=== PATIENT | male | born 1975 | race Caucasian/White ===

== ENCOUNTER 2022-01-15 17:36 | Emergency (ER) | payer OTHER, MEDICAID, SELFPAY ==
[2022-01-15] VITALS (75 sets, daily range): BP systolic 73–110; BP diastolic 40–59; PULSE 98–125; RESP 0–69; TEMP 35.8–36.6; O2SAT 56–100; BMI 27.1
--- NOTE | 2022-01-15 18:09 | PC.NURSE ---
Pt brought in via EMS for worsening liver failure. Pt's abd is very distended which he states is putting pressure on his lungs when he breaths. Also c/o vomiting with copious amounts of bright red blood at home. Weakness which is inhibiting him from making it to the bathroom. Pt appears very jaundice, blood noted around nostrils and mouth. BPs are on the low range of normal and HR [id number].
--- NOTE | 2022-01-15 18:18 | ED_ITS ---
HPI - GI Bleed <Walter Lockwood DO - Last Filed: 01/15/22 22:45> General Chief complaint: Abdominal Pain Stated complaint: Liver Failure Time Seen by Provider: 01/15/22 18:01 History of Present Illness HPI Narrative: 46-year-old male occasional smoker has a heavy history of alcohol abuse, stating he drinks upwards of 2 bottles of wine per day presents by EMS for evaluation of a large amount of bright red vomit. He states that about 2 days ago he started having increasing generalized abdominal pain and swelling along with nausea and chills. Today he had 2 bouts of emesis, both of which were about 16 oz of bright red blood. He states that he started developing yellowing of his skin and eyes and feels a bit itchy. He has generalized weakness and fatigue along with exertional shortness of breath. Though he has an extensive alcohol history he denies any history of ascites or known esophageal varices, stating he is never had an EGD. He does admit to multiple episodes of very dark sticky stools. Related Data Allergies Allergy/AdvReac Type Severity Reaction Status Date / Time No Known Drug Allergies Allergy Verified 01/15/22 17:43 <Tania Eubanks MD - Last Filed: 01/16/22 05:12> General Source: EMS Mode of arrival: EMS Review of Systems <Walter Lockwood DO - Last Filed: 01/15/22 22:45> Review of Systems Narrative: GENERAL: See HPI HEENT: See HPI RESPIRATORY: See HPI CARDIOVASCULAR: Denies chest pain, palpitations, orthopnea, edema, GASTROINTESTINAL: See HPI : Denies dysuria, frequency, incontinence, hematuria, urinary retention. MUSCULOSKELETAL: denies weakness, joint pain, or bony pain SKIN: Denies rash, skin lesions, or other NEUROLOGIC: Denies weakness, headache, numbness, change in speech, confusion, seizures, incoordination. PSYCHIATRIC: No concerning psychosocial issues. 12 point review of systems is negative except for those stated above <Tania Eubanks MD - Last Filed: 01/16/22 05:12> tobacco type: smokeless tobacco alcohol intake frequency: 3 or more drinks per day Alcohol type: wine Substance Use Type: marijuana Exam <Walter Lockwood DO - Last Filed: 01/15/22 22:45> Narrative Exam Narrative: GENERAL: [46] year old patient appears stated age. Obviously significantly ill, awake, alert and oriented HEAD: Atraumatic. Normocephalic. EYES: Pupils equal round and reactive. Extraocular motions intact. Scleral icterus. No injection or drainage. ENT: Nose without bleeding, purulent drainage. Throat without erythema, tonsillar hypertrophy or exudate. Airway patent. NECK: Trachea midline. Non tender CARDIOVASCULAR: Regular but tachycardic rhythm without murmurs, gallops, or rubs. RESPIRATORY: Clear to auscultation. Breath sounds equal bilaterally. No wheezes, rales, or rhonchi. GASTROINTESTINAL: Distended and firm with mild caput medusa and fluid wave consistent with ascites, no erythema or warmth EXTREMITIES: No edema or joint tenderness. BACK: Nontender without deformity or crepitance. No flank tenderness. NEURO: AOx3. SKIN: Jaundice, No rash or erythema of visible areas Initial Vital Signs Initial Vital Signs: Vital Signs Pulse Rate 104 H 01/15/22 17:54 Respiratory Rate 30 H 01/15/22 17:54 Blood Pressure 96/55 L 01/15/22 17:54 Pulse Oximetry 93 01/15/22 17:54 <Tania Eubanks MD - Last Filed: 01/16/22 05:12> Initial Vital Signs Initial Vital Signs: Vital Signs Pulse Rate 104 H 01/15/22 17:54 Respiratory Rate 30 H 01/15/22 17:54 Blood Pressure 96/55 L 01/15/22 17:54 Pulse Oximetry 93 01/15/22 17:54 Procedures <Walter Lockwood DO - Last Filed: 01/15/22 22:45> Central Line Placement Right IJ: Time Out Performed: Yes Patient Placed on Monitor/Pulse Ox: Yes Prep: mask, gown and gloves Central Line Prep: Chlorhexidine scrub and sterile drapes applied Local Anesthetic: lidocaine 2% Amount of anesthesia used (mL): 3 Ultrasound Used for Placement: Yes Central Line Lumen Inserted: triple Post Procedure: sutured in place (statlock), good blood return, all ports aspirated, flushed, capped and sterile dressing applied Post Procedure X-Ray: tip of catheter in good position and no pneumothorax seen Patient Tolerated Procedure: Well Complications: none Intubation Time out performed: Yes sedative: Ketamine Mg Given: 90 paralytic: Rocuronium Mg Given: 54 Laryngoscope: other (glydescope) Assist Device Used: Bougie ET Tube Size: 8 ET Tube Uncuffed: No Tube Secured Depth (cm): 25 Tube Secured Location: teeth Tube Placement Confirmation: Visualized tube passing through cords, Equal breath sounds bilaterally, No breath sounds over epigastrium, Confirmation by capnometry and Chest Xray Patient Tolerated Procedure: Well Intubation Complications: none Course <Walter Lockwood DO - Last Filed: 01/15/22 22:45> Course Course Narrative: MELD Score (Model For End-Stage Liver Disease) (12 and older) from [facility] on 01/15/2022 All calculations should be rechecked by clinician prior to use RESULT SUMMARY: 22 points MELD Score (2016)* 19.6% Estimated 3-Month Mortality INPUTS: Dialysis at least twice in the past week ?> 0 = No Creatinine ?> 1.22 mg/dL Bilirubin ?> 6.0 mg/dL INR ?> 1.9 Sodium ?> 138 mEq/L Orders Ordered: ED Orders 01/15/22 21:25 HH [Hemoglobin and Hematocrit] Stat 01/15/22 22:02 Chest [XR chest 1V] Stat 01/15/22 22:18 Chest [XR chest 1V] Stat 01/15/22 23:00 ABG [Arterial Blood Gas] Stat Discontinued Medications Octreotide Acetate 500 mcg/ (Sodium Chloride) 101 mls @ 10.1 mls/hr IV CONT WILLIAMS; Protocol Last Infusion: 01/15/22 23:42 Dose: 50 mcg/hr, 10.1 mls/hr Documented By: Admin: 01/15/22 18:34 Dose: 50 mcg/hr, 10.1 mls/hr Documented By: AMU Ceftriaxone Sodium 2,000 mg/ (Sodium Chloride) 100 mls @ 200 mls/hr IV NOW ONE Stop: 01/15/22 18:32 Last Infusion: 01/15/22 19:18 Dose: 0 mls/hr Documented By: Admin: 01/15/22 18:41 Dose: 200 mls/hr Documented By: AMU Tranexamic Acid 1,000 mg/ (Sodium Chloride) 100 mls @ 200 mls/hr IV NOW ONE Stop: 01/15/22 19:31 Last Infusion: 01/15/22 20:06 Dose: 0 mls/hr Documented By: Admin: 01/15/22 19:18 Dose: 200 mls/hr Documented By: GAIL NOREPINEPHRINE BITARTRATE/D5W (Levophed) 4 mg in 250 mls @ 30 mls/hr IV TITRATE WILLIAMS; Protocol Last Titration: 01/15/22 23:42 Dose: 10 mcg/min, 37.5 mls/hr Documented By: Titration: 01/15/22 22:47 Dose: 10 mcg/min, 37.5 mls/hr Documented By: DKBharat Admin: 01/15/22 22:16 Dose: 8 mcg/min, 30 mls/hr Documented By: LU Sodium Chloride (Normal Saline 0.9%) 500 mls @ 1,000 mls/hr IV BOLUS ONE Stop: 01/15/22 23:47 Last Infusion: 01/15/22 23:20 Dose: 0 mls/hr Documented By: DKBharat Admin: 01/15/22 21:45 Dose: 1,000 mls/hr Documented By: YUNI Ketamine HCl (Ketamine 500 Mg/5 Ml Inj) 90 mg 1 mg/kg (90 mg) IV NOW ONE Stop: 01/15/22 21:55 Last Admin: 01/15/22 22:10 Dose: 90 mg Documented By: LU Lorazepam (Lorazepam 2 Mg/Ml Inj) 0.5 mg IV NOW ONE Stop: 01/15/22 19:22 Last Admin: 01/15/22 19:32 Dose: 0.5 mg Documented By: GAIL Lorazepam (Lorazepam 2 Mg/Ml Inj) 0.5 mg IV NOW ONE Stop: 01/15/22 20:53 Last Admin: 01/15/22 20:52 Dose: 0.5 mg Documented By: AMCarey Octreotide Acetate (Octreotide 100 Mcg/Ml Vial) 50 mcg IV NOW ONE Stop: 01/15/22 18:25 Last Admin: 01/15/22 18:30 Dose: 50 mcg Documented By: ESTEBANU Pantoprazole Sodium (Pantoprazole 40 Mg Vial) 80 mg IV NOW ONE Stop: 01/15/22 18:05 Last Admin: 01/15/22 18:26 Dose: 80 mg Documented By: GAIL Rocuronium [place] (Rocuronium 100 Mg/10 Ml Vial) 54 mg 0.6 mg/kg (54 mg) IV NOW ONE Stop: 01/15/22 21:55 Last Admin: 01/15/22 22:12 Dose: 54 mg Documented By: BS Consultations Consultation #1: call to GI/ICU at [facility] and they do not have the ability to do emergent banding if needed, recommend 1 of the larger hospitals in [place] calls to , LANETTE, Madi call back from [facility] ICU ([place]) who is happy to accept call to [facility], they will do a weather check and likely be here in - Vital Signs Vital signs: Vital Signs - 8 hr 01/15/22 21:32 01/15/22 21:45 01/15/22 22:45 Temperature 96.6 F L 97.6 F 97.8 F Pulse Rate 105 H 101 H 101 H Respiratory Rate 35 H 36 H 17 Blood Pressure 91/51 L 106/57 L 91/54 L Pulse Oximetry 01/15/22 21:15 01/15/22 21:20 01/15/22 21:25 Temperature Pulse Rate 113 H 109 H 106 H Respiratory Rate 47 H 36 H 39 H Blood Pressure Pulse Oximetry 94 67 L 96 01/15/22 21:30 01/15/22 21:30 01/15/22 21:35 Temperature Pulse Rate 106 H 103 H Respiratory Rate 42 H 28 H Blood Pressure 91/50 L Pulse Oximetry 72 L 77 L 01/15/22 21:40 01/15/22 21:40 01/15/22 21:45 Temperature Pulse Rate 102 H Respiratory Rate 41 H Blood Pressure 93/55 L 110/57 L Pulse Oximetry 98 01/15/22 21:45 01/15/22 21:50 01/15/22 21:50 Temperature Pulse Rate 101 H 101 H Respiratory Rate 34 H 32 H Blood Pressure 105/56 L Pulse Oximetry 90 L 56 L 01/15/22 21:55 01/15/22 21:55 01/15/22 22:00 Temperature Pulse Rate 100 H Respiratory Rate 35 H Blood Pressure 106/57 L 109/59 L Pulse Oximetry 94 01/15/22 22:00 01/15/22 22:05 01/15/22 22:06 Temperature Pulse Rate 101 H 102 H 103 H Respiratory Rate 35 H 38 H 53 H Blood Pressure Pulse Oximetry 99 100 99 01/15/22 22:06 01/15/22 22:10 01/15/22 22:10 Temperature Pulse Rate 104 H Respiratory Rate 69 H Blood Pressure 92/53 L 97/54 L Pulse Oximetry 99 01/15/22 22:15 01/15/22 22:15 01/15/22 22:18 Temperature Pulse Rate 98 H 107 H Respiratory Rate 22 18 Blood Pressure 73/40 L Pulse Oximetry 81 L 96 01/15/22 22:18 01/15/22 22:20 01/15/22 22:20 Temperature Pulse Rate 106 H Respiratory Rate 18 Blood Pressure 83/44 L 92/51 L Pulse Oximetry 94 01/15/22 22:25 01/15/22 22:25 01/15/22 22:30 Temperature Pulse Rate 107 H Respiratory Rate 15 Blood Pressure 93/54 L 99/56 L Pulse Oximetry 92 01/15/22 22:30 01/15/22 22:57 01/15/22 23:01 Temperature 97.3 F L 96.8 F L Pulse Rate 105 H 100 H 100 H Respiratory Rate 17 18 18 Blood Pressure 99/55 L 102/51 L Pulse Oximetry 94 01/15/22 23:27 01/15/22 22:35 01/15/22 22:35 Temperature 96.5 F L Pulse Rate 100 H 104 H Respiratory Rate 24 12 Blood Pressure 94/54 L 97/53 L Pulse Oximetry 95 01/15/22 22:40 01/15/22 22:40 01/15/22 22:45 Temperature Pulse Rate 103 H Respiratory Rate 18 Blood Pressure 95/51 L 91/54 L Pulse Oximetry 96 01/15/22 22:45 01/15/22 22:50 01/15/22 22:50 Temperature Pulse Rate 101 H 100 H Respiratory Rate 18 18 Blood Pressure 98/54 L Pulse Oximetry 97 97 01/15/22 22:55 01/15/22 22:55 01/15/22 23:00 Temperature Pulse Rate 100 H Respiratory Rate 12 Blood Pressure 99/55 L 102/51 L Pulse Oximetry 97 01/15/22 23:00 01/15/22 23:05 01/15/22 23:05 Temperature Pulse Rate 100 H 99 H Respiratory Rate 18 18 Blood Pressure 101/54 L Pulse Oximetry 97 97 01/15/22 23:10 01/15/22 23:10 Temperature Pulse Rate 100 H Respiratory Rate 24 Blood Pressure 104/55 L Pulse Oximetry 97 <Tania Eubanks MD - Last Filed: 01/16/22 05:12> Orders Ordered: ED Orders 01/15/22 21:25 HH [Hemoglobin and Hematocrit] Stat 01/15/22 22:02 Chest [XR chest 1V] Stat 01/15/22 22:18 Chest [XR chest 1V] Stat 01/15/22 23:00 ABG [Arterial Blood Gas] Stat Discontinued Medications Octreotide Acetate 500 mcg/ (Sodium Chloride) 101 mls @ 10.1 mls/hr IV CONT WILLIAMS; Protocol Last Infusion: 01/15/22 23:42 Dose: 50 mcg/hr, 10.1 mls/hr Documented By: DKBharat Admin: 01/15/22 18:34 Dose: 50 mcg/hr, 10.1 mls/hr Documented By: AMU Ceftriaxone Sodium 2,000 mg/ (Sodium Chloride) 100 mls @ 200 mls/hr IV NOW ONE Stop: 01/15/22 18:32 Last Infusion: 01/15/22 19:18 Dose: 0 mls/hr Documented By: Admin: 01/15/22 18:41 Dose: 200 mls/hr Documented By: AMU Tranexamic Acid 1,000 mg/ (Sodium Chloride) 100 mls @ 200 mls/hr IV NOW ONE Stop: 01/15/22 19:31 Last Infusion: 01/15/22 20:06 Dose: 0 mls/hr Documented By: Admin: 01/15/22 19:18 Dose: 200 mls/hr Documented By: AMU NOREPINEPHRINE BITARTRATE/D5W (Levophed) 4 mg in 250 mls @ 30 mls/hr IV TITRATE WILLIAMS; Protocol Last Titration: 01/15/22 23:42 Dose: 10 mcg/min, 37.5 mls/hr Documented By: Titration: 01/15/22 22:47 Dose: 10 mcg/min, 37.5 mls/hr Documented By: Admin: 01/15/22 22:16 Dose: 8 mcg/min, 30 mls/hr Documented By: LU Sodium Chloride (Normal Saline 0.9%) 500 mls @ 1,000 mls/hr IV BOLUS ONE Stop: 01/15/22 23:47 Last Infusion: 01/15/22 23:20 Dose: 0 mls/hr Documented By: Admin: 01/15/22 21:45 Dose: 1,000 mls/hr Documented By: YUNI Ketamine HCl (Ketamine 500 Mg/5 Ml Inj) 90 mg 1 mg/kg (90 mg) IV NOW ONE Stop: 01/15/22 21:55 Last Admin: 01/15/22 22:10 Dose: 90 mg Documented By: LU Lorazepam (Lorazepam 2 Mg/Ml Inj) 0.5 mg IV NOW ONE Stop: 01/15/22 19:22 Last Admin: 01/15/22 19:32 Dose: 0.5 mg Documented By: GAIL Lorazepam (Lorazepam 2 Mg/Ml Inj) 0.5 mg IV NOW ONE Stop: 01/15/22 20:53 Last Admin: 01/15/22 20:52 Dose: 0.5 mg Documented By: GAIL Octreotide Acetate (Octreotide 100 Mcg/Ml Vial) 50 mcg IV NOW ONE Stop: 01/15/22 18:25 Last Admin: 01/15/22 18:30 Dose: 50 mcg Documented By: GAIL Pantoprazole Sodium (Pantoprazole 40 Mg Vial) 80 mg IV NOW ONE Stop: 01/15/22 18:05 Last Admin: 01/15/22 18:26 Dose: 80 mg Documented By: GAIL Rocuronium [place] (Rocuronium 100 Mg/10 Ml Vial) 54 mg 0.6 mg/kg (54 mg) IV NOW ONE Stop: 01/15/22 21:55 Last Admin: 01/15/22 22:12 Dose: 54 mg Documented By: LU Vital Signs Vital signs: Vital Signs - 8 hr 01/15/22 21:32 01/15/22 21:45 01/15/22 22:45 Temperature 96.6 F L 97.6 F 97.8 F Pulse Rate 105 H 101 H 101 H Respiratory Rate 35 H 36 H 17 Blood Pressure 91/51 L 106/57 L 91/54 L Pulse Oximetry 01/15/22 21:15 01/15/22 21:20 01/15/22 21:25 Temperature Pulse Rate 113 H 109 H 106 H Respiratory Rate 47 H 36 H 39 H Blood Pressure Pulse Oximetry 94 67 L 96 01/15/22 21:30 01/15/22 21:30 01/15/22 21:35 Temperature Pulse Rate 106 H 103 H Respiratory Rate 42 H 28 H Blood Pressure 91/50 L Pulse Oximetry 72 L 77 L 01/15/22 21:40 01/15/22 21:40 01/15/22 21:45 Temperature Pulse Rate 102 H Respiratory Rate 41 H Blood Pressure 93/55 L 110/57 L Pulse Oximetry 98 01/15/22 21:45 01/15/22 21:50 01/15/22 21:50 Temperature Pulse Rate 101 H 101 H Respiratory Rate 34 H 32 H Blood Pressure 105/56 L Pulse Oximetry 90 L 56 L 01/15/22 21:55 01/15/22 21:55 01/15/22 22:00 Temperature Pulse Rate 100 H Respiratory Rate 35 H Blood Pressure 106/57 L 109/59 L Pulse Oximetry 94 01/15/22 22:00 01/15/22 22:05 01/15/22 22:06 Temperature Pulse Rate 101 H 102 H 103 H Respiratory Rate 35 H 38 H 53 H Blood Pressure Pulse Oximetry 99 100 99 01/15/22 22:06 01/15/22 22:10 01/15/22 22:10 Temperature Pulse Rate 104 H Respiratory Rate 69 H Blood Pressure 92/53 L 97/54 L Pulse Oximetry 99 01/15/22 22:15 01/15/22 22:15 01/15/22 22:18 Temperature Pulse Rate 98 H 107 H Respiratory Rate 22 18 Blood Pressure 73/40 L Pulse Oximetry 81 L 96 01/15/22 22:18 01/15/22 22:20 01/15/22 22:20 Temperature Pulse Rate 106 H Respiratory Rate 18 Blood Pressure 83/44 L 92/51 L Pulse Oximetry 94 01/15/22 22:25 01/15/22 22:25 01/15/22 22:30 Temperature Pulse Rate 107 H Respiratory Rate 15 Blood Pressure 93/54 L 99/56 L Pulse Oximetry 92 01/15/22 22:30 01/15/22 22:57 01/15/22 23:01 Temperature 97.3 F L 96.8 F L Pulse Rate 105 H 100 H 100 H Respiratory Rate 17 18 18 Blood Pressure 99/55 L 102/51 L Pulse Oximetry 94 01/15/22 23:27 01/15/22 22:35 01/15/22 22:35 Temperature 96.5 F L Pulse Rate 100 H 104 H Respiratory Rate 24 12 Blood Pressure 94/54 L 97/53 L Pulse Oximetry 95 01/15/22 22:40 01/15/22 22:40 01/15/22 22:45 Temperature Pulse Rate 103 H Respiratory Rate 18 Blood Pressure 95/51 L 91/54 L Pulse Oximetry 96 01/15/22 22:45 01/15/22 22:50 01/15/22 22:50 Temperature Pulse Rate 101 H 100 H Respiratory Rate 18 18 Blood Pressure 98/54 L Pulse Oximetry 97 97 01/15/22 22:55 01/15/22 22:55 01/15/22 23:00 Temperature Pulse Rate 100 H Respiratory Rate 12 Blood Pressure 99/55 L 102/51 L Pulse Oximetry 97 01/15/22 23:00 01/15/22 23:05 01/15/22 23:05 Temperature Pulse Rate 100 H 99 H Respiratory Rate 18 18 Blood Pressure 101/54 L Pulse Oximetry 97 97 01/15/22 23:10 01/15/22 23:10 Temperature Pulse Rate 100 H Respiratory Rate 24 Blood Pressure 104/55 L Pulse Oximetry 97 MDM - GI Bleed <Walter Lockwood, DO - Last Filed: 01/15/22 22:45> Lab Data Result diagrams: 01/15/22 21:25 01/15/22 17:46 Labs: Lab Results 01/15/22 01/15/22 01/15/22 Range/Units 17:46 17:46 17:46 WBC (4.5-11.0) X10^3/uL RBC (4.5-5.9) X10^6/uL Hgb (13.5-17.5) g/dL Hct (41-53) % MCV (80-100) fL MCH (26-34) PG MCHC (30-36) % RDW (11.6-14.8) % Plt Count (150-400) X10^3/uL Neut % (Auto) Lymph % (Auto) [place] % (Auto) Eos % (Auto) Baso % (Auto) Lymph # (Auto) [place] # (Auto) Baso # (Auto) Total Counted Seg Neutrophils % (38-70) % Band Neutrophils % (3-7) % Lymphocytes % (Manual) (25-45) % Monocytes % (Manual) (2-11) % Eosinophils % (Manual) (2-4) % Neutrophils # (Manual) (8534-0214) /uL RBC Morphology Dimorphic RBCs Polychromasia Hypochromasia Poikilocytosis Anisocytosis Microcytosis [place] Cells PT 21.7 H (10.1-12.7) SECONDS INR 1.9 H (0.9-1.3) Fibrinogen (211-428) mg/dL ABG pH (7.35-7.45) ABG pCO2 (35-45) mmHg ABG pO2 (80-100) mmHg ABG HCO3 (22-26) mmol/L ABG Total CO2 (21-31) mmol/L ABG O2 Saturation (95-100) % ABG Base Excess (-2-2) mmol/L FiO2 Sodium 138 (137-145) mmol/L Potassium 3.4 (3.4-5.1) mmol/L Chloride 103 (98-107) mmol/L Carbon Dioxide 15 L (22-32) mmol/L BUN 9 (9-20) mg/dL Creatinine 1.22 (0.66-1.25) mg/dL Estimated GFR > 60 (>60) mL/min BUN/Creatinine Ratio 7.4 (6-22) Glucose 151 H (70-100) mg/dL Lactate 8.3 H* (0.7-2.1) mmol/L Calcium 7.7 L (8.4-10.2) mg/dL Total Bilirubin 6.0 H (0.2-1.3) mg/dL AST 113 H (17-59) IU/L ALT 24 (<50) IU/L Alkaline Phosphatase 340 H (38-126) U/L Ammonia (9-30) umol/L Total Protein 6.7 (6.3-8.2) g/dL Albumin 2.8 L (3.5-5.0) g/dL Globulin 3.9 (1.7-4.1) g/dL Albumin/Globulin Ratio 0.7 L (1.0-2.8) Lipase 43 (23-300) U/L SARS-CoV-2 (PCR) (Negative) Blood Type Antibody Screen Crossmatch 01/15/22 01/15/22 01/15/22 Range/Units 17:46 17:46 17:46 WBC (4.5-11.0) X10^3/uL RBC (4.5-5.9) X10^6/uL Hgb (13.5-17.5) g/dL Hct (41-53) % MCV (80-100) fL MCH (26-34) PG MCHC (30-36) % RDW (11.6-14.8) % Plt Count (150-400) X10^3/uL Neut % (Auto) Lymph % (Auto) [place] % (Auto) Eos % (Auto) Baso % (Auto) Lymph # (Auto) [place] # (Auto) Baso # (Auto) Total Counted Seg Neutrophils % (38-70) % Band Neutrophils % (3-7) % Lymphocytes % (Manual) (25-45) % Monocytes % (Manual) (2-11) % Eosinophils % (Manual) (2-4) % Neutrophils # (Manual) (7590-2288) /uL RBC Morphology Dimorphic RBCs Polychromasia Hypochromasia Poikilocytosis Anisocytosis Microcytosis [place] Cells PT (10.1-12.7) SECONDS INR (0.9-1.3) Fibrinogen 241 (211-428) mg/dL ABG pH (7.35-7.45) ABG pCO2 (35-45) mmHg ABG pO2 (80-100) mmHg ABG HCO3 (22-26) mmol/L ABG Total CO2 (21-31) mmol/L ABG O2 Saturation (95-100) % ABG Base Excess (-2-2) mmol/L FiO2 Sodium (137-145) mmol/L Potassium (3.4-5.1) mmol/L Chloride (98-107) mmol/L Carbon Dioxide (22-32) mmol/L BUN (9-20) mg/dL Creatinine (0.66-1.25) mg/dL Estimated GFR (>60) mL/min BUN/Creatinine Ratio (6-22) Glucose (70-100) mg/dL Lactate (0.7-2.1) mmol/L Calcium (8.4-10.2) mg/dL Total Bilirubin (0.2-1.3) mg/dL AST (17-59) IU/L ALT (<50) IU/L Alkaline Phosphatase (38-126) U/L Ammonia 13 (9-30) umol/L Total Protein (6.3-8.2) g/dL Albumin (3.5-5.0) g/dL Globulin (1.7-4.1) g/dL Albumin/Globulin Ratio (1.0-2.8) Lipase (23-300) U/L SARS-CoV-2 (PCR) Negative (Negative) Blood Type Antibody Screen Crossmatch 01/15/22 01/15/22 01/15/22 Range/Units 18:00 18:00 21:25 WBC 26.7 H (4.5-11.0) X10^3/uL RBC 2.70 L (4.5-5.9) X10^6/uL Hgb 6.5 L* 5.0 L* (13.5-17.5) g/dL Hct 21.9 L 17.7 L* (41-53) % MCV 81.3 (80-100) fL MCH 24.2 L (26-34) PG MCHC 29.8 L (30-36) % RDW 29.7 H (11.6-14.8) % Plt Count 333 (150-400) X10^3/uL Neut % (Auto) Not Reportable Lymph % (Auto) Not Reportable [place] % (Auto) Not Reportable Eos % (Auto) Not Reportable Baso % (Auto) Not Reportable Lymph # (Auto) Not Reportable [place] # (Auto) Not Reportable Baso # (Auto) Not Reportable Total Counted 100 Seg Neutrophils % 76.0 H (38-70) % Band Neutrophils % 9.0 H (3-7) % Lymphocytes % (Manual) 8.0 L (25-45) % Monocytes % (Manual) 6.0 (2-11) % Eosinophils % (Manual) 1.0 L (2-4) % Neutrophils # (Manual) 99530 H (2984-3725) /uL RBC Morphology See below Dimorphic RBCs Present Polychromasia 1+ H Hypochromasia 1+ H Poikilocytosis 2+ H Anisocytosis 3+ H Microcytosis 1+ H [place] Cells 1+ H PT (10.1-12.7) SECONDS INR (0.9-1.3) Fibrinogen (211-428) mg/dL ABG pH (7.35-7.45) ABG pCO2 (35-45) mmHg ABG pO2 (80-100) mmHg ABG HCO3 (22-26) mmol/L ABG Total CO2 (21-31) mmol/L ABG O2 Saturation (95-100) % ABG Base Excess (-2-2) mmol/L FiO2 Sodium (137-145) mmol/L Potassium (3.4-5.1) mmol/L Chloride (98-107) mmol/L Carbon Dioxide (22-32) mmol/L BUN (9-20) mg/dL Creatinine (0.66-1.25) mg/dL Estimated GFR (>60) mL/min BUN/Creatinine Ratio (6-22) Glucose (70-100) mg/dL Lactate (0.7-2.1) mmol/L Calcium (8.4-10.2) mg/dL Total Bilirubin (0.2-1.3) mg/dL AST (17-59) IU/L ALT (<50) IU/L Alkaline Phosphatase (38-126) U/L Ammonia (9-30) umol/L Total Protein (6.3-8.2) g/dL Albumin (3.5-5.0) g/dL Globulin (1.7-4.1) g/dL Albumin/Globulin Ratio (1.0-2.8) Lipase (23-300) U/L SARS-CoV-2 (PCR) (Negative) Blood Type B Negative Antibody Screen Negative Crossmatch See Detail 01/15/22 01/15/22 Range/Units 21:29 23:00 WBC (4.5-11.0) X10^3/uL RBC (4.5-5.9) X10^6/uL Hgb (13.5-17.5) g/dL Hct (41-53) % MCV (80-100) fL MCH (26-34) PG MCHC (30-36) % RDW (11.6-14.8) % Plt Count (150-400) X10^3/uL Neut % (Auto) Lymph % (Auto) [place] % (Auto) Eos % (Auto) Baso % (Auto) Lymph # (Auto) [place] # (Auto) Baso # (Auto) Total Counted Seg Neutrophils % (38-70) % Band Neutrophils % (3-7) % Lymphocytes % (Manual) (25-45) % Monocytes % (Manual) (2-11) % Eosinophils % (Manual) (2-4) % Neutrophils # (Manual) (2340-2255) /uL RBC Morphology Dimorphic RBCs Polychromasia Hypochromasia Poikilocytosis Anisocytosis Microcytosis [place] Cells PT (10.1-12.7) SECONDS INR (0.9-1.3) Fibrinogen (211-428) mg/dL ABG pH 6.94 L* (7.35-7.45) ABG pCO2 46.1 H (35-45) mmHg ABG pO2 104 H (80-100) mmHg ABG HCO3 10 L (22-26) mmol/L ABG Total CO2 11 L (21-31) mmol/L ABG O2 Saturation 92 L (95-100) % ABG Base Excess -23.0 L (-2-2) mmol/L FiO2 100 Sodium (137-145) mmol/L Potassium (3.4-5.1) mmol/L Chloride (98-107) mmol/L Carbon Dioxide (22-32) mmol/L BUN (9-20) mg/dL Creatinine (0.66-1.25) mg/dL Estimated GFR (>60) mL/min BUN/Creatinine Ratio (6-22) Glucose (70-100) mg/dL Lactate 16.5 H* (0.7-2.1) mmol/L Calcium (8.4-10.2) mg/dL Total Bilirubin (0.2-1.3) mg/dL AST (17-59) IU/L ALT (<50) IU/L Alkaline Phosphatase (38-126) U/L Ammonia (9-30) umol/L Total Protein (6.3-8.2) g/dL Albumin (3.5-5.0) g/dL Globulin (1.7-4.1) g/dL Albumin/Globulin Ratio (1.0-2.8) Lipase (23-300) U/L SARS-CoV-2 (PCR) (Negative) Blood Type Antibody Screen Crossmatch Imaging Data US - abdomen: Radiologist's Impression: [address] [address] Ultrasound Report Signed Patient: Agapito Nichols MR#: [id number] : 1975 Acct:[id number] Age/Sex: 46 / M Date of Service: 01/15/22 Loc: ED Accession Number: [id number] ?? Procedure: US abdomen limited Ordering Provider: Walter Lockwood D.O. PROCEDURE: US ABDOMEN LIMITED ? INDICATIONS:? first time ascites ? TECHNIQUE:? Real-time focused scanning was performed of the abdomen, with image documentation.? ? COMPARISON:? None. ? FINDINGS:? Large amount of ascites is noted. ? IMPRESSION:? Large amount of ascites is noted. ? ? Dictated by: Bobo Faulkner M.D. on 01/15/2022 at 19:56 ? ? Approved by: Bobo Faulkner M.D. on 01/15/2022 at 19:57 ? MDM Narrative Medical decision making narrative: Patient presents with 2 days of new onset ascites, jaundice and dark tarry stools, today he had 2 large episodes of bright red bloody emesis with extensive alcohol history, he denies any history of similar and has no prior EGD. Initial tolerance of hypotension until blood available, patient began developing mental status change and increased respiratory distress, central line placed and patient intubated, bed available at ICU at [facility] for further management <Tania Eubanks MD - Last Filed: 01/16/22 05:12> Lab Data Labs: Lab Results 01/15/22 01/15/22 01/15/22 Range/Units 17:46 17:46 17:46 WBC (4.5-11.0) X10^3/uL RBC (4.5-5.9) X10^6/uL Hgb (13.5-17.5) g/dL Hct (41-53) % MCV (80-100) fL MCH (26-34) PG MCHC (30-36) % RDW (11.6-14.8) % Plt Count (150-400) X10^3/uL Neut % (Auto) Lymph % (Auto) [place] % (Auto) Eos % (Auto) Baso % (Auto) Lymph # (Auto) [place] # (Auto) Baso # (Auto) Total Counted Seg Neutrophils % (38-70) % Band Neutrophils % (3-7) % Lymphocytes % (Manual) (25-45) % Monocytes % (Manual) (2-11) % Eosinophils % (Manual) (2-4) % Neutrophils # (Manual) (1684-3186) /uL RBC Morphology Dimorphic RBCs Polychromasia Hypochromasia Poikilocytosis Anisocytosis Microcytosis [place] Cells PT 21.7 H (10.1-12.7) SECONDS INR 1.9 H (0.9-1.3) Fibrinogen (211-428) mg/dL ABG pH (7.35-7.45) ABG pCO2 (35-45) mmHg ABG pO2 (80-100) mmHg ABG HCO3 (22-26) mmol/L ABG Total CO2 (21-31) mmol/L ABG O2 Saturation (95-100) % ABG Base Excess (-2-2) mmol/L FiO2 Sodium 138 (137-145) mmol/L Potassium 3.4 (3.4-5.1) mmol/L Chloride 103 (98-107) mmol/L Carbon Dioxide 15 L (22-32) mmol/L BUN 9 (9-20) mg/dL Creatinine 1.22 (0.66-1.25) mg/dL Estimated GFR > 60 (>60) mL/min BUN/Creatinine Ratio 7.4 (6-22) Glucose 151 H (70-100) mg/dL Lactate 8.3 H* (0.7-2.1) mmol/L Calcium 7.7 L (8.4-10.2) mg/dL Total Bilirubin 6.0 H (0.2-1.3) mg/dL AST 113 H (17-59) IU/L ALT 24 (<50) IU/L Alkaline Phosphatase 340 H (38-126) U/L Ammonia (9-30) umol/L Total Protein 6.7 (6.3-8.2) g/dL Albumin 2.8 L (3.5-5.0) g/dL Globulin 3.9 (1.7-4.1) g/dL Albumin/Globulin Ratio 0.7 L (1.0-2.8) Lipase 43 (23-300) U/L SARS-CoV-2 (PCR) (Negative) Blood Type Antibody Screen Crossmatch 01/15/22 01/15/22 01/15/22 Range/Units 17:46 17:46 17:46 WBC (4.5-11.0) X10^3/uL RBC (4.5-5.9) X10^6/uL Hgb (13.5-17.5) g/dL Hct (41-53) % MCV (80-100) fL MCH (26-34) PG MCHC (30-36) % RDW (11.6-14.8) % Plt Count (150-400) X10^3/uL Neut % (Auto) Lymph % (Auto) [place] % (Auto) Eos % (Auto) Baso % (Auto) Lymph # (Auto) [place] # (Auto) Baso # (Auto) Total Counted Seg Neutrophils % (38-70) % Band Neutrophils % (3-7) % Lymphocytes % (Manual) (25-45) % Monocytes % (Manual) (2-11) % Eosinophils % (Manual) (2-4) % Neutrophils # (Manual) (2315-0862) /uL RBC Morphology Dimorphic RBCs Polychromasia Hypochromasia Poikilocytosis Anisocytosis Microcytosis [place] Cells PT (10.1-12.7) SECONDS INR (0.9-1.3) Fibrinogen 241 (211-428) mg/dL ABG pH (7.35-7.45) ABG pCO2 (35-45) mmHg ABG pO2 (80-100) mmHg ABG HCO3 (22-26) mmol/L ABG Total CO2 (21-31) mmol/L ABG O2 Saturation (95-100) % ABG Base Excess (-2-2) mmol/L FiO2 Sodium (137-145) mmol/L Potassium (3.4-5.1) mmol/L Chloride (98-107) mmol/L Carbon Dioxide (22-32) mmol/L BUN (9-20) mg/dL Creatinine (0.66-1.25) mg/dL Estimated GFR (>60) mL/min BUN/Creatinine Ratio (6-22) Glucose (70-100) mg/dL Lactate (0.7-2.1) mmol/L Calcium (8.4-10.2) mg/dL Total Bilirubin (0.2-1.3) mg/dL AST (17-59) IU/L ALT (<50) IU/L Alkaline Phosphatase (38-126) U/L Ammonia 13 (9-30) umol/L Total Protein (6.3-8.2) g/dL Albumin (3.5-5.0) g/dL Globulin (1.7-4.1) g/dL Albumin/Globulin Ratio (1.0-2.8) Lipase (23-300) U/L SARS-CoV-2 (PCR) Negative (Negative) Blood Type Antibody Screen Crossmatch 01/15/22 01/15/22 01/15/22 Range/Units 18:00 18:00 21:25 WBC 26.7 H (4.5-11.0) X10^3/uL RBC 2.70 L (4.5-5.9) X10^6/uL Hgb 6.5 L* 5.0 L* (13.5-17.5) g/dL Hct 21.9 L 17.7 L* (41-53) % MCV 81.3 (80-100) fL MCH 24.2 L (26-34) PG MCHC 29.8 L (30-36) % RDW 29.7 H (11.6-14.8) % Plt Count 333 (150-400) X10^3/uL Neut % (Auto) Not Reportable Lymph % (Auto) Not Reportable [place] % (Auto) Not Reportable Eos % (Auto) Not Reportable Baso % (Auto) Not Reportable Lymph # (Auto) Not Reportable [place] # (Auto) Not Reportable Baso # (Auto) Not Reportable Total Counted 100 Seg Neutrophils % 76.0 H (38-70) % Band Neutrophils % 9.0 H (3-7) % Lymphocytes % (Manual) 8.0 L (25-45) % Monocytes % (Manual) 6.0 (2-11) % Eosinophils % (Manual) 1.0 L (2-4) % Neutrophils # (Manual) 50297 H (1387-4729) /uL RBC Morphology See below Dimorphic RBCs Present Polychromasia 1+ H Hypochromasia 1+ H Poikilocytosis 2+ H Anisocytosis 3+ H Microcytosis 1+ H [place] Cells 1+ H PT (10.1-12.7) SECONDS INR (0.9-1.3) Fibrinogen (211-428) mg/dL ABG pH (7.35-7.45) ABG pCO2 (35-45) mmHg ABG pO2 (80-100) mmHg ABG HCO3 (22-26) mmol/L ABG Total CO2 (21-31) mmol/L ABG O2 Saturation (95-100) % ABG Base Excess (-2-2) mmol/L FiO2 Sodium (137-145) mmol/L Potassium (3.4-5.1) mmol/L Chloride (98-107) mmol/L Carbon Dioxide (22-32) mmol/L BUN (9-20) mg/dL Creatinine (0.66-1.25) mg/dL Estimated GFR (>60) mL/min BUN/Creatinine Ratio (6-22) Glucose (70-100) mg/dL Lactate (0.7-2.1) mmol/L Calcium (8.4-10.2) mg/dL Total Bilirubin (0.2-1.3) mg/dL AST (17-59) IU/L ALT (<50) IU/L Alkaline Phosphatase (38-126) U/L Ammonia (9-30) umol/L Total Protein (6.3-8.2) g/dL Albumin (3.5-5.0) g/dL Globulin (1.7-4.1) g/dL Albumin/Globulin Ratio (1.0-2.8) Lipase (23-300) U/L SARS-CoV-2 (PCR) (Negative) Blood Type B Negative Antibody Screen Negative Crossmatch See Detail 01/15/22 01/15/22 Range/Units 21:29 23:00 WBC (4.5-11.0) X10^3/uL RBC (4.5-5.9) X10^6/uL Hgb (13.5-17.5) g/dL Hct (41-53) % MCV (80-100) fL MCH (26-34) PG MCHC (30-36) % RDW (11.6-14.8) % Plt Count (150-400) X10^3/uL Neut % (Auto) Lymph % (Auto) [place] % (Auto) Eos % (Auto) Baso % (Auto) Lymph # (Auto) [place] # (Auto) Baso # (Auto) Total Counted Seg Neutrophils % (38-70) % Band Neutrophils % (3-7) % Lymphocytes % (Manual) (25-45) % Monocytes % (Manual) (2-11) % Eosinophils % (Manual) (2-4) % Neutrophils # (Manual) (5638-2932) /uL RBC Morphology Dimorphic RBCs Polychromasia Hypochromasia Poikilocytosis Anisocytosis Microcytosis [place] Cells PT (10.1-12.7) SECONDS INR (0.9-1.3) Fibrinogen (211-428) mg/dL ABG pH 6.94 L* (7.35-7.45) ABG pCO2 46.1 H (35-45) mmHg ABG pO2 104 H (80-100) mmHg ABG HCO3 10 L (22-26) mmol/L ABG Total CO2 11 L (21-31) mmol/L ABG O2 Saturation 92 L (95-100) % ABG Base Excess -23.0 L (-2-2) mmol/L FiO2 100 Sodium (137-145) mmol/L Potassium (3.4-5.1) mmol/L Chloride (98-107) mmol/L Carbon Dioxide (22-32) mmol/L BUN (9-20) mg/dL Creatinine (0.66-1.25) mg/dL Estimated GFR (>60) mL/min BUN/Creatinine Ratio (6-22) Glucose (70-100) mg/dL Lactate 16.5 H* (0.7-2.1) mmol/L Calcium (8.4-10.2) mg/dL Total Bilirubin (0.2-1.3) mg/dL AST (17-59) IU/L ALT (<50) IU/L Alkaline Phosphatase (38-126) U/L Ammonia (9-30) umol/L Total Protein (6.3-8.2) g/dL Albumin (3.5-5.0) g/dL Globulin (1.7-4.1) g/dL Albumin/Globulin Ratio (1.0-2.8) Lipase (23-300) U/L SARS-CoV-2 (PCR) (Negative) Blood Type Antibody Screen Crossmatch Critical Care Time <Walter Lockwood DO - Last Filed: 01/15/22 22:45> Critical Care Time Critical Care Time: Yes Total Critical Care Time: 45 Attestation: The high probability of a clinically significant, sudden or life threatening deterioration of the [GI/CV] system(s) required my full and direct attention, intervention and personal management. The aggregate critical care time was [45] minutes. This time is in addition to time spent performing reported procedures but includes the following: [x] Data Review and interpretation [x] Patient assessment and monitoring of vital signs [x] Documentation [x] Medication orders and management Discharge Plan Departure Patient Disposition: [facility] Clinical Impression: Bleeding esophageal varices, Hypovolemic shock, Anemia, Acute hypoxemic respiratory failure, Alcohol abuse <Tania Eubanks MD - Last Filed: 01/16/22 05:12> Cosign ED Attending Cosignature Attestation: I was immediately available in the department for consultation throughout this patient's visit. I agree with documentation as above. Tania Eubanks MD
[2022-01-15] MEDS: PANTOPRAZOLE 40 MG VIAL 80 MG IV (18:26)
[2022-01-15] MEDS: OCTREOTIDE 100 MCG/ML VIAL 50 MCG IV (18:30)
--- NOTE | 2022-01-15 18:30 | DI.US.S_ITS ---
PROCEDURE: US ABDOMEN LIMITED INDICATIONS: first time ascites TECHNIQUE: Real-time focused scanning was performed of the abdomen, with image documentation. COMPARISON: None. FINDINGS: Large amount of ascites is noted. IMPRESSION: Large amount of ascites is noted. Dictated by: Bobo Faulkner M.D. on 01/15/2022 at 19:56 Approved by: Bobo Faulkner M.D. on 01/15/2022 at 19:57
[2022-01-15] MEDS: OCTREOTIDE 500 MCG in SODIUM CHLORIDE 0.9% 100 ML 10.1 MCG IV (18:34)
[2022-01-15 18:39] LABS: Ammonia (NH3) 13 umol/L (9-30)
[2022-01-15 18:41] LABS: Alanine Aminotransferase 24 IU/L (<50); Albumin 2.8 g/dL (3.5-5.0); Albumin Globulin Ratio 0.7 (1.0-2.8); Alkaline Phosphatase 340 U/L (38-126); Aspartate Aminotransferase 113 IU/L (17-59); BUN Creatinine Ratio 7.4 (6-22); Blood Urea Nitrogen 9 mg/dL (9-20); Calcium 7.7 mg/dL (8.4-10.2); Carbon Dioxide 15 mmol/L (22-32); Chloride 103 mmol/L (98-107); Estimated Glomerular Filt Rate > 60 mL/min (>60); Globulin 3.9 g/dL (1.7-4.1); Glucose 151 mg/dL (70-100); HEMOLYSIS < 15 (0-50); Lipase 43 U/L (23-300); Potassium 3.4 mmol/L (3.4-5.1); Sodium 138 mmol/L (137-145); Total Protein 6.7 g/dL (6.3-8.2)
[2022-01-15] MEDS: cefTRIAXone 2,000 MG in SODIUM CHLORIDE 0.9% 100 ML 200 MG IV (18:41)
[2022-01-15 18:55] LABS: INR 1.9 (0.9-1.3); Prothrombin Time 21.7 SECONDS (10.1-12.7)
[2022-01-15 19:01] LABS: Lactate (Lactic Acid) 8.3 mmol/L (0.7-2.1)
[2022-01-15 19:03] LABS: Hematocrit 21.9 % (41-53); Hemoglobin 6.5 g/dL (13.5-17.5); Mean Corpuscular HGB Conc 29.8 % (30-36); Mean Corpuscular Hemoglobin 24.2 PG (26-34); Mean Corpuscular Volume 81.3 fL (80-100); Platelet Count 333 X10^3/uL (150-400); Red Cell Distribution Width 29.7 % (11.6-14.8); White Blood Cell Count 26.7 X10^3/uL (4.5-11.0)
[2022-01-15 19:04] LABS: Add Manual Diff / Slide Review YES
[2022-01-15 19:08] LABS: Neutrophils Absolute Manual 22695 /uL (3000-5900); Total Cells Counted 100
[2022-01-15 19:09] LABS: Anisocytosis 3+; Microcytosis 1+
[2022-01-15 19:10] LABS: Hypochromasia 1+; Polychromasia 1+
[2022-01-15 19:11] LABS: Burr Cells 1+; Dimorphic RBC PRESENT; Poikilocytosis 2+
[2022-01-15] MEDS: TRANEXAMIC ACID 1,000 MG in SODIUM CHLORIDE 0.9% 100 ML 200 MG IV (19:18)
[2022-01-15 19:25] LABS: COVID19 -Nasal RAPID Negative (Negative)
[2022-01-15] MEDS: LORazepam 2 MG/ML INJ 0.5 MG IV ×2 (19:32→20:52)
[2022-01-15 20:09] LABS: Reflexed Lactate in 2 Hours Y
--- NOTE | 2022-01-15 20:33 | PC.NURSE ---
Pt climbed out of bed without calling for assistance (call button attached to railing) attempting to go to the bathroom. Bright red blood/clots coming out of pt's rectum. Pt assisted to the BSC, cleaned, and back to bed. Dr. Lockwood came to bedside.
[2022-01-15] MEDS: SODIUM CHLORIDE 0.9% 500 ML 1000 ML IV (21:45)
[2022-01-15 21:46] LABS: Hematocrit 17.7 % (41-53)
[2022-01-15 21:56] LABS: Lactate 2HR (Lactic Acid Rflx) 16.5 mmol/L (0.7-2.1)
--- NOTE | 2022-01-15 22:02 | DI.RAD.S_ITS ---
P the ROCEDURE: XR CHEST 1V INDICATIONS: central line placement TECHNIQUE: One view of the chest was acquired. COMPARISON: [facility], , XR CHEST 1V, 01/15/2022, 22:13. FINDINGS: Surgical changes and devices: There is a right internal jugular catheter with the tip projecting over the cavoatrial junction. External leads and cutaneous pads limited evaluation. Lungs and pleura: There are low lung volumes. Pulmonary vascular prominence is demonstrated consistent with pulmonary edema. Medial left basilar opacities are consistent with consolidation or atelectasis. There is a suspected small left pleural effusion. No definite pneumothorax but evaluation is limited by supine technique. Mediastinum: Mediastinal contours appear widened likely due to portable supine technique and low lung volumes. Heart size is normal. Bones and chest wall: No suspicious bony lesions. Overlying soft tissues appear unremarkable. IMPRESSION: 1. No definite pneumothorax but evaluation is limited by supine technique 2. Low lung volumes with medial left basilar consolidation or atelectasis and pulmonary edema. 3. Small left pleural effusion. Dictated by: Des Ospina M.D. on 01/16/2022 at 0:10 Approved by: Des Ospina M.D. on 01/16/2022 at 0:14
[2022-01-15] MEDS: KETAMINE 500 MG/5 ML INJ 90 MG IV (22:10)
[2022-01-15] MEDS: ROCURONIUM 100 MG/10 ML VIAL 54 MG IV (22:12)
--- NOTE | 2022-01-15 22:15 | PC.NURSE ---
Dr. Lockwood intubated patient with 8.0 ET tube @ 25 at the teeth. RT at bedside.
[2022-01-15] MEDS: NOREPINEPHRINE BITARTRATE/D5W 4 MG/250 ML PLAST..BAG 30 MG IV (22:16)
--- NOTE | 2022-01-15 22:18 | DI.RAD.S_ITS ---
PROCEDURE: XR CHEST 1V INDICATIONS: intubation TECHNIQUE: One view of the chest was acquired. COMPARISON: [facility], CR, XR CHEST 1V, 01/15/2022, 21:49. FINDINGS: Surgical changes and devices: There is a new endotracheal tube with the tip approximately 2.8 cm from the maged. Right internal jugular catheter redemonstrated with the tip projecting over the cavoatrial junction. Lungs and pleura: There are low lung volumes. Pulmonary vascular prominence is redemonstrated consistent with pulmonary edema, slightly decreased from the prior study. There are persistent medial left basilar opacities consistent with consolidation or atelectasis. A probable small left pleural effusion is present with incomplete inclusion of the left costophrenic angle on the current study. No definite pneumothorax but evaluation is limited by supine technique. Mediastinum: Mediastinal contours appear unchanged. Heart size is normal. Bones and chest wall: No suspicious bony lesions. Overlying soft tissues appear unremarkable. IMPRESSION: 1. New endotracheal tube with the tip approximately 2.8 cm from the maged. Recommend withdrawal by approximately 1 cm when clinically feasible. 2. Persistent low lung volumes with medial left basilar consolidation or atelectasis as well as persistent pulmonary edema. 3. Small left pleural effusion is not well visualized on the current study. Dictated by: Des Ospina M.D. on 01/16/2022 at 0:14 Approved by: Des Ospina M.D. on 01/16/2022 at 0:16
[2022-01-15 22:29] LABS: Fibrinogen 241 mg/dL (211-428)
[2022-01-15] MEDS: fentaNYL 100 MCG/2 ML INJ (23:17)
[2022-01-15 23:20] LABS: PCO2 ABG 46.1 mmHg (35-45); pH ABG 6.94 (7.35-7.45)
[2022-01-15 23:21] LABS: Fractionated Inspired Oxygen 100; HCO3 ABG 10 mmol/L (22-26); Oxygen Saturation ABG 92 % (95-100); PO2 ABG 104 mmHg (80-100); TCO2 ABG 11 mmol/L (21-31)
--- NOTE | 2022-01-16 00:15 | PC.NURSE ---
Pt airlifted after central line placed, jesus placed, intubated, received 2 units PRBC, recieved 1.5units FFP, the remainder of FFP plus 1 full unit FFP sent with Airl[employer].
--- NOTE | 2022-01-16 00:34 | PC.NURSE ---
This nurse assumed care of Pt at 2099, Pt had been requiring 2-4 person assist with transfer to [facility] [place] due to low BP, Bleeding, weakness, and n/v. At 2114 Pt mentation decreased, Pt had near syncopal episode, notified provider and assessed patient, started interventions for blood loss and low BP, O2 sat had dropped to 70's and pt would not wear O2, Very anxious. Labs repeated at 2124, fluid bolus and blood started for pt per orders. Critical care time started when this RN assumed care.
== END 2022-01-16 00:15 | disposition short-term general hospital (02) ==
PROVIDERS: Emergency Medicine; Emergency Provider Emergency Medicine
DX: I85.01 Esophageal varices with bleeding (principal); R57.1 Hypovolemic shock; D64.9 Anemia, unspecified; J96.01 Acute respiratory failure with hypoxia; F10.10 Alcohol abuse, uncomplicated; Z20.822 Contact with and (suspected) exposure to COVID-19
CPT/HCPCS: 31500; 36415; 36430; 36556; 36600; 71045; 76705; 80053; 82140; 82805; 83605; 83690; 85007; 85014; 85018; 85025; 85384; 85610; 86850; 86900; 86901; 86927; 87040; 87635; 93005; 94002; 94799; 96365; 96366; 96368; 96375; 96376; 99285; 99291; 99292; C9803; P9016; C9113; J0696; J2060; J2354; J3010